=== PATIENT | female | born 1980 | race Caucasian/White ===

== ENCOUNTER 2019-03-15 17:12 | Emergency (ER) | payer MEDICAID ==
[~2019-03-15] VITALS: Ht 167.6 cm; Wt 114.5 kg
[~2019-03-15 17:12] MED LIST: CEPH-443 PO; MUPI22OI2 TOP
[2019-03-15 17:15] VITALS: BP 142/75; PULSE 110; RESP 18; Ht 167.6 cm; Wt 114.5 kg
== END 2019-03-15 19:41 | disposition home or self-care (01) ==
LOC: FTE 17:12
DX: L01.00 Impetigo, unspecified (principal)
CPT/HCPCS: 99283